=== PATIENT | female | born 1975 | race Caucasian/White ===

== ENCOUNTER → 2017-05-11 | Outpatient (CLI) | payer OTHER ==
--- NOTE | 2017-05-11 11:26 | XR ---
First digit right hand HISTORY: Trauma and pain 3 views of the first digit of the right hand Bone mineralization, joint spaces and alignment are maintained. No radiopaque foreign body evident. IMPRESSION: No fracture or dislocation evident. Follow-up as indicated.
== END | disposition home or self-care (01) ==
LOC: RADXRMAIN 10:55
PROVIDERS: ATTEND Emergency Medicine
DX: S60.111D Contusion of right thumb with damage to nail, subsequent encounter (principal)

== ENCOUNTER → 2017-06-09 | Outpatient (CLI) | payer OTHER ==
--- NOTE | 2017-06-09 14:32 | US ---
EXAMINATION TYPE: US thyroid st tissue head/neck DATE OF EXAM: 06/09/2017 COMPARISON: NONE CLINICAL HISTORY: E04.9 nontoxic goiter. Doctor felt thyroid was enlarged GLAND SIZE: Right Lobe: 4.9 x 1.2 x 1.6 cm Overall Parenchyma: homogenous Left Lobe: 4.6 x 0.7 x 1.5 cm Overall Parenchyma: homogeneous Isthmus Thickness: 0.3 cm NODULES RIGHT: # of nodules measured on right: 0 LEFT: # of nodules measured on left: 0 ISTHMUS: # of nodules measured in the isthmus: 0 Within the left neck, there is a oval hypoechoic area measuring 1.1 x 0.3 x 0.5 cm, probable nonenlar ged lymph node. IMPRESSION: Thyroid gland is upper limits of normal in size and homogeneous without focal nodularity.
== END | disposition home or self-care (01) ==
LOC: RADUSWWP 13:57
PROVIDERS: ATTEND Family Medicine
DX: E04.9 Nontoxic goiter, unspecified (principal)
CPT/HCPCS: 76536

== ENCOUNTER 2018-11-20 04:49 | Emergency (ER) | payer OTHER ==
[2018-11-20 04:53] VITALS: BP 117/79; PULSE 99; RESP 20; TEMP 97.9
--- NOTE | 2018-11-20 04:59 | ED ---
Skin/Abscess/FB HPI - General Chief complaint: Skin/Abscess/Foreign Body Stated complaint: Rash Time Seen by Provider: 11/20/18 04:56 Source: patient Mode of arrival: ambulatory Limitations: no limitations - History of Present Illness Initial comments: Jyoti is a pleasant 42-year-old female who presents to the emergency department today for evaluation of diffuse urticarial rash. Patient reports that a couple of nights ago she tried on her daughter's old prom dresses. Patient states that one of the dresses had been dry-cleaning others she doesn't believe had been. Patient states that after that she noted some hives on her abdomen. Patient reports that she took Benadryl and slept however yesterday she again noted hives on her abdomen. She states she took Benadryl prior to going to bed but woke during the night and had hives over her bilateral lower extremities as well. Patient states she's never had this before. She denies any exposure to new soaps, lotions, laundry detergent or any new foods or medications. Patient states she believes this is related to trying on the dresses. She denies any associated wheezing shortness breath tightness in her chest or throat. She does feel that her lower lip is somewhat swollen. His nebulizer of asthma ectopy or urticaria in the past. - Related Data Previous Rx's Medication Instructions Recorded clonazePAM [KlonoPIN] 0.25 mg PO PC-TID #30 tab 08/13/15 hydrOXYzine HCL [Atarax] 25 mg PO TID PRN #30 tab 11/20/18 predniSONE [Deltasone] 40 mg PO DAILY 5 Days #10 tablet 11/20/18 Allergies Allergy/AdvReac Type Severity Reaction Status Date / Time Penicillins Allergy Severe Anaphylaxis Verified 11/20/18 04:53 medical tape Allergy Rash/Hives Uncoded 11/20/18 04:53 Review of Systems ROS Statement: Those systems with pertinent positive or pertinent negative responses have been documented in the HPI. ROS Other: All systems not noted in ROS Statement are negative. Past Medical History Past Medical History: No Reported History Additional Past Medical History / Comment(s): SEE DR BARBOSA H&P History of Any Multi-Drug Resistant Organisms: None Reported Past Surgical History: Section, Hysterectomy, Tubal Ligation Additional Past Surgical History / Comment(s): laparotomy Past Anesthesia/Blood Transfusion Reactions: No Reported Reaction, Motion Sickness Past Psychological History: Anxiety Smoking Status: Never smoker Past Alcohol Use History: Rare Past Drug Use History: None Reported - Past Family History Mother Family Medical History: No Reported History Father Family Medical History: Myocardial Infarction ([place]) General Exam - General Exam Comments Initial Comments: Physical Exam GENERAL: Patient is well-developed and well-nourished. Patient is nontoxic and well- hydrated and is in no distress. HENT: Normocephalic, Atraumatic. No posterior oropharyngeal edema, normal uvula EYES: PERRL, EOMI PULMONARY: Unlabored respirations. No audible rales rhonchi or wheezing was noted. CARDIOVASCULAR: There is a regular rate and rhythm without any murmurs gallops or rubs. ABDOMEN: Soft and nontender with normal bowel sounds. SKIN: Hives on bilateral lower extremities, hives on the abdomen : Deferred NEUROLOGIC: Patient is alert and oriented x3. Moving all extremities spontaneously MUSCULOSKELETAL: Normal extremities with adequate strength and full range of motion. No lower extremity swelling or edema. No calf tenderness. PSYCHIATRIC: Normal psychiatric evaluation. Limitations: no limitations Course Vital Signs 11/20/18 04:49 Temperature 97.9 F Pulse Rate 99 Respiratory 20 Rate Blood Pressure 117/79 O2 Sat by Pulse 100 Oximetry Medical Decision Making - Medical Decision Making The patient was seen and evaluated, history is obtained from the patient History and physical exam are concerning for urticarial rash, this appears to be ALLERGIC in nature Patient was treated with Benadryl, Solu-Medrol and Pepcid, patient will be discharged home with prednisone and Atarax I advised the patient to keep a list of any possible exposures that could be worsening her symptoms, recommended avoiding heat, advised her not to scratch, supportive care was discussed return parameters discussed patient was discharged home in stable condition Disposition Clinical Impression: Urticaria Disposition: HOME SELF-CARE Condition: Stable Instructions (If sedation given, give patient instructions): Urticaria (ED) Prescriptions: hydrOXYzine HCL [Atarax] 25 mg PO TID PRN #30 tab PRN Reason: Itching predniSONE [Deltasone] 40 mg PO DAILY 5 Days #10 tablet Is patient prescribed a controlled substance at d/c from ED?: No Referrals: Jatin Parra DO [Primary Care Provider] - 1-2 days
[2018-11-20] MEDS ORDERED: methylPREDNISolone SOD SUCCI 125 MG/2 ML VIAL IV STA (05:17)
[2018-11-20] MEDS ORDERED: diphenhydrAMINE 50 MG/ML 1 ML VIAL IVP STA (05:17)
[2018-11-20] MEDS ORDERED: FAMOTIDINE 20 MG/2 ML VIAL IV STA (05:17)
== END 2018-11-20 05:50 | disposition home or self-care (01) ==
LOC: EC 04:49
DX: L50.9 Urticaria, unspecified (principal); Z88.0 Allergy status to penicillin; Z91.048 Other nonmedicinal substance allergy status
CPT/HCPCS: 99282; 96374; 96375 ×2; J1200; J2930

== ENCOUNTER 2018-12-09 08:25 | Emergency (ER) | payer OTHER ==
[2018-12-09 08:34] VITALS: TEMP 97.9
--- NOTE | 2018-12-09 08:56 | ED ---
Allergic Reaction HPI - General Chief complaint: Allergic Reaction Stated complaint: Allergic Reaction Time Seen by Provider: 12/09/18 08:38 Source: patient, RN notes reviewed Mode of arrival: ambulatory Limitations: no limitations - History of Present Illness Initial Comments: 42-year-old female presented for possible ALLERGIC reaction. Patient's been having recurrent reactions in which she is seen at hot room attendant next week. Patient states that she woke up today states she started getting ready to noticed that she started having facial swelling, felt itchy and tingly. Patient states that the symptoms have improved at this time no medications. She states this is similar to her prior reactions though her initial reaction she had diffuse urticaria. Patient denies any new soaps lotions detergents no new medications no known food ALLERGIES she does have reported sensitivity to penicillin and medical tape. Patient states that she's been keeping a diary of all all of her food intake and other products. Patient denies difficult swelling, to complete breathing - Related Data Previous Rx's Medication Instructions Recorded predniSONE 50 mg PO DAILY #5 tab 12/09/18 Allergies Allergy/AdvReac Type Severity Reaction Status Date / Time Penicillins Allergy Severe Anaphylaxis Verified 12/09/18 08:34 medical tape Allergy Rash/Hives Uncoded 12/09/18 08:34 Review of Systems ROS Statement: Those systems with pertinent positive or pertinent negative responses have been documented in the HPI. ROS Other: All systems not noted in ROS Statement are negative. Past Medical History Past Medical History: No Reported History Additional Past Medical History / Comment(s): SEE DR BARBOSA H&P History of Any Multi-Drug Resistant Organisms: None Reported Past Surgical History: Section, Hysterectomy, Tubal Ligation Additional Past Surgical History / Comment(s): laparotomy Past Anesthesia/Blood Transfusion Reactions: No Reported Reaction, Motion Sickness Past Psychological History: Anxiety Smoking Status: Never smoker Past Alcohol Use History: Rare Past Drug Use History: None Reported - Past Family History Mother Family Medical History: No Reported History Father Family Medical History: Myocardial Infarction ([place]) General Exam Limitations: no limitations General appearance: alert, in no apparent distress Head exam: Present: atraumatic, normocephalic, normal inspection Eye exam: Present: normal appearance, PERRL, EOMI. Absent: scleral icterus, conjunctival injection, periorbital swelling ENT exam: Present: normal exam, normal oropharynx, mucous membranes moist, TM's normal bilaterally Neck exam: Present: normal inspection, full ROM. Absent: tenderness, meningis mus, lymphadenopathy Respiratory exam: Present: normal lung sounds bilaterally. Absent: respiratory distress, wheezes, rales, rhonchi, stridor Cardiovascular Exam: Present: regular rate, normal rhythm, normal heart sounds. Absent: systolic murmur, diastolic murmur, rubs, gallop, clicks GI/Abdominal exam: Present: soft, normal bowel sounds. Absent: distended, tenderness, guarding, rebound, rigid Neurological exam: Present: alert, oriented X3, CN II-XII intact Skin exam: Present: warm, dry, intact, normal color. Absent: rash Course Vital Signs 12/09/18 08:32 Temperature 97.9 F Pulse Rate 89 Respiratory 18 Rate Blood Pressure 128/85 O2 Sat by Pulse 99 Oximetry Medical Decision Making - Medical Decision Making 42-year-old female presented for possible ALLERGIC reaction symptoms have resolved prior to arrival. Symptoms are consistent with reaction which patient is concerned about. She is scheduled to see an hot room attendant. Patient will be provided prednisone if symptoms return she will take Benadryl in addition. Return parameters were discussed. Disposition Clinical Impression: Allergic reaction Disposition: HOME SELF-CARE Condition: Stable Instructions (If sedation given, give patient instructions): General Allergic Reaction (ED) Additional Instructions: Follow-up with your hot room attendant appointment. Please return to the Emergency Department if symptoms worsen or any other concerns. Prescriptions: predniSONE 50 mg PO DAILY #5 tab Is patient prescribed a controlled substance at d/c from ED?: No Referrals: Jatin Parra DO [Primary Care Provider] - 1-2 days Jayda Omer MD [STAFF PHYSICIAN] - 1-2 days Time of Disposition: 08:56
[2018-12-09 09:24] VITALS: BP 128/89; PULSE 79; RESP 18
== END 2018-12-09 09:19 | disposition home or self-care (01) ==
LOC: EC 08:25
DX: T78.40XA Allergy, unspecified, initial encounter (principal); L50.0 Allergic urticaria; Z88.0 Allergy status to penicillin; Z91.048 Other nonmedicinal substance allergy status
CPT/HCPCS: 99283

== ENCOUNTER → 2018-12-13 | Outpatient (CLI) | payer OTHER ==
--- NOTE | 2018-12-13 19:34 | US ---
EXAMINATION TYPE: US thyroid st tissue head/neck DATE OF EXAM: 12/13/2018 COMPARISON: NONE CLINICAL HISTORY: E04.9 Thyroid Nodule. Thyroid nodule GLAND SIZE: Right Lobe: 5.3 x 1.4 x 1.5 cm Overall Parenchyma: homogenous Left Lobe: 4.9 x 1.4 x 1.8 cm Overall Parenchyma: homogeneous Isthmus Thickness: .3 cm NODULES RIGHT: # of nodules measured on right: 0 LEFT: # of nodules measured on left: 0 ISTHMUS: # of nodules measured in the isthmus: 0 Bilateral neck scanned, no evidence of lymphadenopathy. IMPRESSION: Stable unremarkable tyroid ultrasound
== END | disposition home or self-care (01) ==
LOC: RADUSMAIN 17:43
PROVIDERS: ATTEND Allergy & Immunology
DX: E04.9 Nontoxic goiter, unspecified (principal)
CPT/HCPCS: 76536

== ENCOUNTER → 2021-01-28 | Outpatient (CLI) | payer OTHER ==
--- NOTE | 2021-01-29 14:14 | MM ---
Reason for exam: screening (asymptomatic). Last mammogram was performed 1 year and 6 months ago. History: Patient is postmenopausal. Family history of breast cancer in maternal grandmother and breast cancer in maternal aunt. Took hormonal contraceptives for 3 years. Physical Findings: A clinical breast exam by your physician is recommended on an annual basis and results should be correlated with mammographic findings. MG Screening Mammo w CAD Bilateral CC and MLO view(s) were taken. Prior study comparison: August 03, 2019, mammogram, performed at [facility]. The breast tissue is heterogeneously dense. This may lower the sensitivity of mammography. There is no discrete abnormality. ASSESSMENT: Negative, BI-RAD 1 RECOMMENDATION: Routine screening mammogram of both breasts in 1 year.
== END | disposition home or self-care (01) ==
LOC: RADMAMWWP 07:45
PROVIDERS: ATTEND Family Medicine
DX: Z12.31 Encounter for screening mammogram for malignant neoplasm of breast (principal); Z80.3 Family history of malignant neoplasm of breast
CPT/HCPCS: 77067

== ENCOUNTER → 2021-01-29 | Outpatient (CLI) | payer OTHER ==
--- NOTE | 2021-01-29 13:42 | P.STRESS ---
- Stress Test Note Stress Test Results/Findings: Exam Performed: stress test Exam Date: 01/29/21 Reason for Exam: CHEST PAIN, FAMILY HX Height: 5 ft 1 in Weight: 60.9 kg Protocol: SHAYLA Stage: 4 Duration of Exercise: 10:16 Resting Heart Rate: 70 Resting Blood Pressure: 115/90 Maximum Achieved Heart Rate: 170 Maximum Achieved Blood Pressure: 187/76 85% PMHR: 150 100% PMHR: 176 METS: 12.1 Technologist Comment: Stress Test Results/Findings: Patient underwent exercise stress EKG with a Shayla protocol treadmill stress test. Patient exercised into Stage 4 for a total of 10 minutes and 16 seconds reaching a total of 12.1 METS. Patient's maximum heart rate was 170 which represented 97% age-predicted maximum heart rate. Stress EKG findings: At baseline patient's EKG showed normal sinus rhythm, normal axis, no significant ST or T wave abnormalities, T-wave inversion in lead 3. At peak exercise, EKG showed nonspecific and nondiagnostic 0.[address] depressions in the inferior and lateral leads. Conclusions: 1. Nonspecific EKG response to exercise without evidence of inducible ischemia. 2. Good exercise capacity.
== END | disposition home or self-care (01) ==
LOC: RADNMMAIN 08:24
PROVIDERS: ATTEND Family Medicine
DX: R07.9 Chest pain, unspecified (principal)
CPT/HCPCS: 93017

== ENCOUNTER 2022-01-22 08:44 | Day surgery (SDC) | payer OTHER ==
[2022-01-22 09:08] VITALS: TEMP 97.7
[2022-01-22] MEDS ORDERED: LACTATED RINGERS 1,000 ML IV ONE (09:23)
[2022-01-22] MEDS ORDERED: LIDOCAINE 1% (10MG/ML) FOR IV START INTRADERMA ONE (09:24)
[2022-01-22] MEDS ORDERED: PROPOFOL 10 MG/ML 20 ML VIAL IV ONE (10:00)
--- NOTE | 2022-01-22 10:15 | P.PCN ---
Date of Procedure: 01/22/22 Procedure(s) Performed: BRIEF HISTORY: Patient is a 46-year-old pleasant 8 female scheduled for an elective colonoscopy as a part of screening for colorectal neoplasia. She does have strong family history of colon cancer diagnosed in her paternal uncles at age 59 and 65 respectively. PROCEDURE PERFORMED: Colonoscopy. PREOPERATIVE DIAGNOSIS: Screening for colon cancer and family history of colon cancer. IV sedation per Anesthesia. PROCEDURE: After informed consent was obtained, the patient, was brought into the endoscopy unit. IV sedation was administered by Anesthesia under continuous monitoring. Digital rectal examination was normal. Initially the Olympus CF-160 flexible video colonoscope was then inserted in the rectum, gradually advanced into the cecum without any difficulty. Careful examination was performed as the scope was gradually being withdrawn. Ileocecal valve and the appendiceal orifice were visualized and appeared normal. Prep was excellent. Mucosa of the cecum, ascending colon, transverse colon, descending colon, sigmoid colon, and rectum appeared normal. At her sigmoid diverticulosis. Retroflexion was performed in the rectum and no lesions were seen. The patient tolerated the procedure well. IMPRESSION: Normal-appearing colon from rectum to cecum with no evidence of colorectal neoplasia. Scattered sigmoid diverticulosis. RECOMMENDATIONS: Findings of this examination were discussed with the patient as well as a family. She was advised to have a repeat screening colonoscopy every 5 years because of family history of colon cancer.
[2022-01-22 10:37] VITALS: BP 105/58; PULSE 94; RESP 16
== END 2022-01-22 11:11 | disposition home or self-care (01) ==
LOC: ORWHC2ENDO 08:44
PROVIDERS: ATTEND Internal Medicine Gastroenterology
DX: Z12.11 Encounter for screening for malignant neoplasm of colon (principal); K57.30 Diverticulosis of large intestine without perforation or abscess without bleeding; Z80.0 Family history of malignant neoplasm of digestive organs; R19.5 Other fecal abnormalities
CPT/HCPCS: 45378; J2704

== ENCOUNTER → 2022-01-29 | Outpatient (CLI) | payer OTHER ==
--- NOTE | 2022-01-29 16:13 | MM ---
Reason for Exam: Screening (asymptomatic). Last screening mammogram was performed 12 month(s) ago. Patient History: Menarche at age 13. First Full-Term at age 21. Hysterectomy at age 36. Postmenopausal. Patient used Hormonal Contraceptives for 3 years. Maternal grandmother had breast cancer. Maternal aunt had breast cancer. Risk Values: Jayda 5 year model risk: 0.7%. NCI Lifetime model risk: 8.6%. Prior Study Comparison: 08/03/2019 Screening Mammogram, [facility]. 01/28/2021 Bilateral Screening Mammogram, [facility]. Tissue Density: The breast tissue is heterogeneously dense. This may lower the sensitivity of mammography. Findings: Analyzed By CAD. There is no suspicious group of microcalcifications or new suspicious mass in either breast. Overall Assessment: Negative, BI-RAD 1 Management: Screening Mammogram of both breasts in 1 year. A clinical breast exam by your physician is recommended on an annual basis and results should be correlated with mammographic findings. [facility] will attempt to contact patient to return for supplemental views and ultrasound if indicated. Electronically signed and approved by: Dimitri Huynh DO
== END | disposition home or self-care (01) ==
LOC: RADMAMWWP 10:46
PROVIDERS: ATTEND Family Medicine
DX: Z12.31 Encounter for screening mammogram for malignant neoplasm of breast (principal); Z78.0 Asymptomatic menopausal state; Z80.3 Family history of malignant neoplasm of breast
CPT/HCPCS: 77067

== ENCOUNTER 2022-02-13 07:32 | Emergency (ER) | payer OTHER ==
[2022-02-13 07:39] VITALS: RESP 18
[2022-02-13] MEDS ORDERED: methylPREDNISolone SOD SUCCI 125 MG/2 ML VIAL IM ONE (07:46)
[2022-02-13] MEDS ORDERED: diphenhydrAMINE 50 MG/ML 1 ML VIAL IM STA (07:46)
--- NOTE | 2022-02-13 07:56 | ED ---
Allergic Reaction HPI - General Chief complaint: Allergic Reaction Stated complaint: tingling facial area Time Seen by Provider: 02/13/22 07:46 Source: patient, RN notes reviewed, old records reviewed Mode of arrival: ambulatory Limitations: no limitations - History of Present Illness Initial Comments: This is an anxious 46-year-old female presents to the emergency room with complaints of facial tingling and sore throat after being exposed to a child was eating peanut butter on the bus this morning. Patient states that she has an ALLERGY to peanuts does take a daily antihistamine. Does have an EpiPen but did not use it today. She denies any nausea vomiting diarrhea. No difficulty in breathing. Denies difficulty in swallowing or rashes. Patient is anxious but states she has been dealing with exposures at work for a long time and is frustrated. MD Complaint: other (Sore throat and facial tingling) -: hour(s) (2) Exposure: food (Peanuts) Severity: mild Treatment Prior to Arrival: none Previous Allergy History: prior ED visit(s) - Related Data Home Medications Medication Instructions Recorded Confirmed Loratadine [Claritin] 10 mg PO DAILY 01/21/22 01/22/22 Allergies Allergy/AdvReac Type Severity Reaction Status Date / Time Penicillins Allergy Severe Anaphylaxis Verified 01/22/22 09:08 tree nut [Nut] Allergy Anaphylaxis Verified 02/13/22 07:39 medical tape Allergy Rash/Hives Uncoded 01/22/22 09:08 Review of Systems ROS Statement: Those systems with pertinent positive or pertinent negative responses have been documented in the HPI. ROS Other: All systems not noted in ROS Statement are negative. Past Medical History Past Medical History: No Reported History Additional Past Medical History / Comment(s): SEE DR BARBOSA H&P History of Any Multi-Drug Resistant Organisms: None Reported Past Surgical History: Section, Hysterectomy, Tubal Ligation Additional Past Surgical History / Comment(s): laparotomy, bunion surg scot feet Past Anesthesia/Blood Transfusion Reactions: No Reported Reaction, Motion Sickness Past Psychological History: Anxiety Smoking Status: Never smoker Past Alcohol Use History: Occasional Past Drug Use History: None Reported - Past Family History Mother Family Medical History: No Reported History Father Family Medical History: Myocardial Infarction ([place]) General Exam Limitations: no limitations General appearance: alert, in no apparent distress Head exam: Present: atraumatic Eye exam: Present: normal appearance. Absent: scleral icterus, conjunctival injection, periorbital swelling ENT exam: Present: normal oropharynx, mucous membranes moist Expanded Mouth exam: Present: tongue normal, tongue elevation. Absent: drooling, trismus, muffled voice Throat exam: normal inspection. negative: tonsillar erythema, tonsillomegaly, tonsillar exudate, R peritonsillar mass, L peritonsillar mass Neck exam: Absent: meningismus Respiratory exam: Present: normal lung sounds bilaterally. Absent: respiratory distress, wheezes, rales, rhonchi, stridor, chest wall tenderness, accessory muscle use, decreased breath sounds Cardiovascular Exam: Present: regular rate GI/Abdominal exam: Present: soft Neurological exam: Present: alert, oriented X3 Psychiatric exam: Present: anxious Skin exam: Present: warm, dry, normal color. Absent: cyanosis, diaphoretic, pallor Course Vital Signs 02/13/22 07:36 Temperature 98 F Pulse Rate 98 Respiratory 18 Rate Blood Pressure 145/78 O2 Sat by Pulse 100 Oximetry Medical Decision Making - Medical Decision Making Patient was given Solu-Medrol and Benadryl in the emergency room. She was also given Pepcid. Lungs sounds are clear no respiratory distress. No nausea vomiting. No rashes. She is feeling better. Discussed with Dr. Nguyen she'll be discharged home. She does have an EpiPen. Directed to follow-up with her ALLERGY asthma doctor as needed. She is agreeable to this plan and care. Disposition Clinical Impression: Allergic reaction Disposition: HOME SELF-CARE Condition: Good Instructions (If sedation given, give patient instructions): Peanut Allergy (ED) Additional Instructions: Take Benadryl as needed. Continue daily ALLERGY medication. Use your epinephrine pen with any shortness of breath or difficulty swallowing. Go to an emergency room after using an EpiPen for evaluation. Is patient prescribed a controlled substance at d/c from ED?: No Referrals: Amari Edge MD [Primary Care Provider] - 1-2 days Time of Disposition: 08:23
[2022-02-13] MEDS ORDERED: FAMOTIDINE 20 MG TAB PO STA (08:21)
[2022-02-13 08:45] VITALS: BP 137/84; PULSE 89; TEMP 98.2
== END 2022-02-13 08:44 | disposition home or self-care (01) ==
LOC: EC 07:32
DX: T78.40XA Allergy, unspecified, initial encounter (principal); F41.9 Anxiety disorder, unspecified; Z88.0 Allergy status to penicillin; Z91.018 Allergy to other foods; Z91.09 Other allergy status, other than to drugs and biological substances
CPT/HCPCS: 99283; 96372 ×2; J1200; J2930

== ENCOUNTER → 2022-07-21 | Outpatient (CLI) | payer OTHER ==
--- NOTE | 2022-07-21 11:33 | XR ---
EXAMINATION TYPE: XR shoulder complete RT DATE OF EXAM: 07/21/2022 COMPARISON: NONE HISTORY: Pain TECHNIQUE: Three views are submitted. FINDINGS: The osseous structures are intact. There is no acute fracture or dislocation. The AC joint is maint ained. IMPRESSION: 1. No acute process.
== END | disposition home or self-care (01) ==
LOC: RADXRMAIN 11:05
PROVIDERS: ATTEND Emergency Medicine
DX: S46.011A Strain of muscle(s) and tendon(s) of the rotator cuff of right shoulder, initial encounter (principal); X58.XXXA Exposure to other specified factors, initial encounter

== ENCOUNTER → 2023-01-23 | Outpatient (CLI) | payer OTHER ==
--- NOTE | 2023-01-23 10:58 | FL ---
EXAMINATION TYPE: FL UGI air wo esophagus wo KUB DATE OF EXAM: 01/23/2023 10:48 AM CLINICAL INDICATION:Female, 47 years old with history of R10.2 L LOW QUAD PAIN R10.13 EPIGASTRIC PAIN K62.5; COMPARISON: 09/06/2013 CT TECHNIQUE: The procedure was explained and patient history elicited. All patient questions were ans wered prior to start of procedure. A color strainer radiograph of the abdomen was also reviewed. Multiple flu oroscopic spot images of the esophagus, stomach and duodenum were obtained following ingestion of liq uid barium and EZ-gas crystals. Fluoroscopic time: 2 min Fluoroscopic images: 0 Radiographs taken: 64 DAP: [id number] [id number] FINDINGS: Upper GI examination: The color strainer abdominal radiograph demonstrates a normal bowel gas pattern without dilated loops of small or large bowel. There is no evidence for organomegaly or pneumoperitoneum. No abnormal calcificat ions. The visualized osseous structures are intact. The esophagus appears unremarkable without evidence of focal stricture, ulceration or abnormal outpou nahun. No hiatal hernia was visualized. No evidence of gastroesophageal reflux was seen when the p atient was instructed to bear down. The stomach and duodenum demonstrate a normal course and contour. There is no evidence of focal gastric or duodenal ulceration, stricture, or abnormal outpouching. IMPRESSION: Normal upper gastrointestinal examination.
--- NOTE | 2023-01-23 11:06 | US ---
EXAMINATION TYPE: US abdomen complete DATE OF EXAM: 01/23/2023 COMPARISON: NONE CLINICAL INDICATION: Female, 47 years old with history of R10.2 L LOW QUAD PAIN R10.13 EPIGASTRIC ROBERT N K62.5; epigastric pain x a few months, getting worse TECHNIQUE: Multiple sonographic images of the abdomen are obtained. FINDINGS: EXAM MEASUREMENTS: Liver Length: 15.2 cm Gallbladder Wall: 0.2 cm CBD: 0.2 cm Spleen: 9.6 cm Right Kidney: 10.9x3.2x4.0 cm Left Kidney: 10.6x4.1x4.6 cm RADIO BROADCASTER NOTES: Pancreas: Tail obscured by overlying bowel gas Liver: Within normal limits. Gallbladder: tiny <3mm echogenic foci noted on anterior and posterior wall, do not appear to be free ly mobile Evidence for sonographic Boyce's sign: No CBD: wnl Spleen: wnl Right Kidney: wnl Left Kidney: wnl Upper IVC: wnl Abd Aorta: wnl The liver is homogenous. The intrahepatic portion of the IVC and proximal abdominal aorta are within normal limits. Common bile duct is unremarkable. The visualized portions of the pancreas are homog enous. The spleen is unremarkable. Kidneys are symmetric and free of hydronephrosis. No renal lesi ons are seen. IMPRESSION: 1. No evidence for acute process. 2. Possible gallbladder polyp versus adherent gallstone.
== END | disposition home or self-care (01) ==
LOC: RADUSWWP 08:50
PROVIDERS: ATTEND Family Medicine
DX: K62.5 Hemorrhage of anus and rectum (principal)
CPT/HCPCS: 74246; 76700

== ENCOUNTER → 2023-02-23 | Outpatient (CLI) | payer OTHER ==
--- NOTE | 2023-02-25 07:44 | MM ---
Reason for Exam: Screening (asymptomatic). Last mammogram was performed 1 year(s) and 1 month(s) ago. Patient History: Menarche at age 13. First Full-Term at age 21. Hysterectomy at age 36. Postmenopausal. Patient used Hormonal Contraceptives for 3 years. Maternal grandmother had breast cancer. Maternal aunt had breast cancer. Risk Values: Jayda 5 year model risk: 0.8%. NCI Lifetime model risk: 8.5%. Prior Study Comparison: 08/03/2019 Screening Mammogram, [facility]. 01/28/2021 Bilateral Screening Mammogram, [facility]. 01/29/2022 Bilateral MG screening mammo w CAD, [facility]. Tissue Density: The breast tissue is heterogeneously dense. This may lower the sensitivity of mammography. Findings: Analyzed By CAD. Asymmetric density inner upper left breast approximately 5 cm from the nipple. Additional views are recommended. No suspicious calcifications within either breast. Overall Assessment: Incomplete: need additional imaging evaluation, BI-RAD 0 Management: Diagnostic Mammogram of the left breast. . Patient should continue monthly self-breast exams. A clinical breast exam by your physician is recommended on an annual basis. This exam should not preclude additional follow-up of suspicious palpable abnormalities. Note on Jayda scores and lifetime risk: 1. A Jayda score greater than 3% is considered moderate risk. If this is the case, consider specialist referral to assess eligibility for a risk reducing agent. 2. If overall lifetime risk for the development of breast cancer is 20% or higher, the patient may qualify for future screening with alternating mammogram and breast MRI. Electronically signed and approved by: Alfred Gant M.D. Radiologis
== END | disposition home or self-care (01) ==
LOC: RADMAMWWP 09:42
PROVIDERS: ATTEND Family Medicine
DX: Z12.31 Encounter for screening mammogram for malignant neoplasm of breast (principal); Z78.0 Asymptomatic menopausal state; Z80.3 Family history of malignant neoplasm of breast
CPT/HCPCS: 77067

== ENCOUNTER → 2023-03-06 | Outpatient (CLI) | payer OTHER ==
--- NOTE | 2023-03-06 10:53 | MM ---
Reason for Exam: Additional evaluation requested from abnormal screening. Last screening mammogram was performed less than 1 month ago. Patient History: Menarche at age 13. First Full-Term at age 21. Hysterectomy at age 36. Postmenopausal. Patient used Hormonal Contraceptives for 3 years. Maternal grandmother had breast cancer. Maternal aunt had breast cancer. Risk Values: Jayda 5 year model risk: 0.8%. NCI Lifetime model risk: 8.5%. Prior Study Comparison: 01/28/2021 Bilateral Screening Mammogram, [facility]. 01/29/2022 Bilateral MG screening mammo w CAD, [facility]. 02/23/2023 Bilateral MG screening mammo w CAD, [facility]. Tissue Density: Left: The breast tissue is heterogeneously dense. This may lower the sensitivity of mammography. Findings: Analyzed By CAD. The questioned area of medial focal asymmetry does not persist on additional spot 3-D images or 3-D lateral view. Findings compatible with superimposition shadow. Overall Assessment: Benign, BI-RAD 2 Management: Screening Mammogram of both breasts in 1 year. Results were given to the patient verbally at the time of exam. Patient should continue monthly self-breast exams. A clinical breast exam by your physician is recommended on an annual basis. This exam should not preclude additional follow-up of suspicious palpable abnormalities. Note on Jayda scores and lifetime risk: 1. A Jayda score greater than 3% is considered moderate risk. If this is the case, consider specialist referral to assess eligibility for a risk reducing agent. 2. If overall lifetime risk for the development of breast cancer is 20% or higher, the patient may qualify for future screening with alternating mammogram and breast MRI. Electronically signed and approved by: Idania Bush M.D. Radiologist
== END | disposition home or self-care (01) ==
LOC: RADMAMWWP 10:12
PROVIDERS: ATTEND Family Medicine
DX: R92.332 Mammographic heterogeneous density, left breast (principal); Z78.0 Asymptomatic menopausal state; Z80.3 Family history of malignant neoplasm of breast
CPT/HCPCS: 77061; 77065

== ENCOUNTER 2024-07-22 09:53 | Emergency (ER) | payer OTHER ==
--- NOTE | 2024-07-22 10:40 | ED ---
General Adult HPI - General Chief complaint: Allergic Reaction Stated complaint: facial swelling Time Seen by Provider: 07/22/24 10:12 Source: patient, RN notes reviewed Mode of arrival: ambulatory Limitations: no limitations - History of Present Illness Initial comments: 48-year-old female presents to the emergency department for evaluation of potential allergic reaction. Patient states that she has noticed facial swelling that started this morning. She denies any known new exposures. She does report a history of allergic reactions. She did not use her EpiPen. Patient reports feeling slightly lightheaded and more short of breath. She denies any known fever, chills. Denies any new exposures. - Related Data Home Medications Medication Instructions Recorded Confirmed Loratadine [Claritin] 10 mg PO DAILY 01/21/22 01/22/22 Previous Rx's Medication Instructions Recorded predniSONE 50 mg PO DAILY #5 tab 07/22/24 Allergies Allergy/AdvReac Type Severity Reaction Status Date / Time Penicillins Allergy Severe Anaphylaxis Verified 07/22/24 10:03 tree nut [Nut] Allergy Anaphylaxis Verified 07/22/24 10:03 medical tape Allergy Rash/Hives Uncoded 07/22/24 10:03 Review of Systems ROS Statement: Those systems with pertinent positive or pertinent negative responses have been documented in the HPI. ROS Other: All systems not noted in ROS Statement are negative. Past Medical History Past Medical History: No Reported History Additional Past Medical History / Comment(s): SEE DR BARBOSA H&P History of Any Multi-Drug Resistant Organisms: None Reported Past Surgical History: Section, Hysterectomy, Tubal Ligation Additional Past Surgical History / Comment(s): laparotomy, bunion surg scot feet Past Anesthesia/Blood Transfusion Reactions: No Reported Reaction, Motion Sickness Past Psychological History: Anxiety Smoking Status: Never smoker Past Alcohol Use History: Occasional Past Drug Use History: None Reported - Past Family History Mother Family Medical History: No Reported History Father Family Medical History: Myocardial Infarction ([place]) General Exam Limitations: no limitations General appearance: alert, in no apparent distress Head exam: Present: atraumatic, normocephalic, normal inspection Eye exam: Present: normal appearance, PERRL, EOMI. Absent: scleral icterus, conjunctival injection, periorbital swelling ENT exam: Present: mucous membranes moist, other (Mild edema to the upper lip, no swelling to the tongue or uvula) Neck exam: Present: normal inspection. Absent: tenderness, meningismus, lymphadenopathy Respiratory exam: Present: normal lung sounds bilaterally. Absent: respiratory distress, wheezes, rales, rhonchi, stridor Cardiovascular Exam: Present: regular rate, normal rhythm, normal heart sounds. Absent: systolic murmur, diastolic murmur, rubs, gallop, clicks Extremities exam: Present: normal inspection, full ROM, normal capillary refill. Absent: tenderness, pedal edema, joint swelling, calf tenderness Back exam: Present: normal inspection Neurological exam: Present: alert, oriented X3 Psychiatric exam: Present: normal affect, normal mood Skin exam: Present: warm, dry, intact, normal color. Absent: rash Course Vital Signs 07/22/24 07/22/24 10:00 12:26 Temperature 98.5 F 98.4 F Pulse Rate 74 70 Respiratory 17 16 Rate Blood Pressure 127/80 125/82 O2 Sat by Pulse 98 98 Oximetry Medical Decision Making - Medical Decision Making Was pt. sent in by a medical professional or institution (, PA, SERVICE OPERATOR, urgent care, hospital, or fdc...) When possible be specific @ -[No] Did you speak to anyone other than the patient for history (EMS, parent, family, police, friend...)? What history was obtained from this source @ -[No] Did you review nursing and triage notes (agree or disagree)? Why? @ -[I reviewed and agree with nursing and triage notes] Were old charts reviewed (outside hosp., previous admission, EMS record, old EKG, old radiological studies, urgent care reports/EKG's, fdc records)? Report findings @ -[No old charts were reviewed] Differential Diagnosis (chest pain, altered mental status, abdominal pain women, abdominal pain men, vaginal bleeding, weakness, fever, dyspnea, syncope, headache, dizziness, GI bleed, back pain, seizure, CVA, palpatations, mental health, musculoskeletal)? @ -Differential Dyspnea: Coronary syndrome, arrhythmia, tamponade, asthma, COPD, pulmonary embolism, pneumonia, pneumothorax, pulmonary effusion, anaphylaxis, diabetic ketoacidosis, flailed chest, pulmonary contusion, diaphragmatic rupture, anemia, neuromuscular, this is not meant to be an all-inclusive list. EKG interpreted by me (3pts min.). @ -EKG@1048 reveals sinus rhythm rate 67, GA 110, QRS 77, QTQTc [id number] X-rays interpreted by me (1pt min.). @ -Chest x-ray reveals no acute process CT interpreted by me (1pt min.). @ -[None done] U/S interpreted by me (1pt. min.). @ -[None done] What testing was considered but not performed or refused? (CT, X-rays, U/S, labs)? Why? @ -[None] What meds were considered but not given or refused? Why? @ -[None] Did you discuss the management of the patient with other professionals (professionals i.e. DrDerek, PA, SERVICE OPERATOR, lab, RT, psych nurse, neonatal social worker, moisture machine tender, teacher, chief media officer, senior case manager)? Give summary @ -[No] Was smoking cessation discussed for >3mins.? @ -[No] Was critical care preformed (if so, how long)? @ -[No] Were there social determinants of health that impacted care today? How? (Homelessness, low income, unemployed, alcoholism, drug addiction, transportation, low edu. Level, literacy, decrease access to med. care, custodial, rehab)? @ -[No] Was there de-escalation of care discussed even if they declined (Discuss DNR or withdrawal of care, Hospice)? DNR status @ -[No] What co-morbidities impacted this encounter? (DM, HTN, Smoking, COPD, CAD, Cancer, CVA, ARF, Chemo, Hep., AIDS, mental health diagnosis, sleep apnea, morbid obesity)? @ -[None] Was patient admitted / discharged? Hospital course, mention meds given and route, prescriptions, significant lab abnormalities, going to OR and other pertinent info. @ -Discharge. Patient presented emergency department for potential allergic reaction. She was administered an allergy cocktail in the emergency department. She does report improvement in her symptoms. Laboratory studies were obtained revealing no significant leukocytosis, hemoglobin stable; CMP is nonactionable. Chest x-ray reveals no acute process. Patient is in no acute distress. Vital signs are stable. Patient will be discharged home. She is understanding agreeable with plan. Patient stable at time of discharge. Case discussed with Dr. Gordon. Undiagnosed new problem with uncertain prognosis? @ -[No] Drug Therapy requiring intensive monitoring for toxicity (Heparin, Nitro, Insulin, Cardizem)? @ -[No] Were any procedures done? @ -[No] Diagnosis/symptom? @ -Allergic reaction Acute, or Chronic, or Acute on Chronic? @ -Acute Uncomplicated (without systemic symptoms) or Complicated (systemic symptoms)? @ -Uncomplicated Side effects of treatment? @ -[No] Exacerbation, Progression, or Severe Exacerbation? @ -[No] Poses a threat to life or bodily function? How? (Chest pain, [place], [place], pneumonia, PE, COPD, DKA, ARF, appy, cholecystitis, CVA, Diverticulitis, Homicidal, Suicidal, threat to staff... and all critical care pts) @ -[No] - Lab Data Result diagrams: 07/22/24 10:48 07/22/24 10:48 Lab Results 07/22/24 07/22/24 07/22/24 Range/Units 10:48 10:48 10:48 WBC 9.42 (4.50-10.00) 10*3/uL RBC 4.46 (4.10-5.20) 10*6/uL Hgb 14.0 (12.0-15.0) g/dL Hct 40.7 (37.2-46.3) % MCV 91.3 (80.0-97.0) fL MCH 31.4 (27.0-32.0) pg MCHC 34.4 (32.0-37.0) g/dL Plt Count 340 (140-440) 10*3/uL MPV 9.6 (9.5-12.2) fL Immature Gran % (Auto) 0.8 % Neutrophils % 44.0 % Lymphocytes % 45.8 % Monocytes % 6.8 % Eosinophils % 2.1 % Basophils % 0.5 % Immature Gran # 0.08 H (0.00-0.04) 10*3/uL Neutrophils # 4.14 (1.80-7.70) 10*3/uL Lymphocytes # 4.31 (0.90-5.00) 10*3/uL Monocytes # 0.64 (0.20-1.00) 10*3/uL Eosinophils # 0.20 (0.04-0.35) 10*3/uL Basophils # 0.05 (0.00-0.10) 10*3/uL PT 10.2 (10.0-12.5) sec INR 0.9 (<1.2) APTT 23.5 (22.0-30.0) sec Sodium 142 (137-145) mmol/L Potassium 3.5 (3.5-5.1) mmol/L Chloride 105 (98-107) mmol/L Carbon Dioxide 25 (22-30) mmol/L Anion Gap 12 mmol/L BUN 14 (7-17) mg/dL Creatinine 0.73 (0.52-1.04) mg/dL Est GFR (CKD-EPI)AfAm >90 (>60 ml/min/1.73 sqM) Est GFR (CKD-EPI)NonAf >90 (>60 ml/min/1.73 sqM) Glucose 84 (74-99) mg/dL Calcium 9.3 (8.4-10.2) mg/dL Total Bilirubin 0.3 (0.2-1.3) mg/dL AST 20 (14-36) U/L ALT 21 (4-34) U/L Alkaline Phosphatase 51 (38-126) U/L Troponin I (0.000-0.034) ng/mL Total Protein 7.1 (6.3-8.2) g/dL Albumin 4.3 (3.5-5.0) g/dL 07/22/24 Range/Units 10:48 WBC (4.50-10.00) 10*3/uL RBC (4.10-5.20) 10*6/uL Hgb (12.0-15.0) g/dL Hct (37.2-46.3) % MCV (80.0-97.0) fL MCH (27.0-32.0) pg MCHC (32.0-37.0) g/dL Plt Count (140-440) 10*3/uL MPV (9.5-12.2) fL Immature Gran % (Auto) % Neutrophils % % Lymphocytes % % Monocytes % % Eosinophils % % Basophils % % Immature Gran # (0.00-0.04) 10*3/uL Neutrophils # (1.80-7.70) 10*3/uL Lymphocytes # (0.90-5.00) 10*3/uL Monocytes # (0.20-1.00) 10*3/uL Eosinophils # (0.04-0.35) 10*3/uL Basophils # (0.00-0.10) 10*3/uL PT (10.0-12.5) sec INR (<1.2) APTT (22.0-30.0) sec Sodium (137-145) mmol/L Potassium (3.5-5.1) mmol/L Chloride (98-107) mmol/L Carbon Dioxide (22-30) mmol/L Anion Gap mmol/L BUN (7-17) mg/dL Creatinine (0.52-1.04) mg/dL Est GFR (CKD-EPI)AfAm (>60 ml/min/1.73 sqM) Est GFR (CKD-EPI)NonAf (>60 ml/min/1.73 sqM) Glucose (74-99) mg/dL Calcium (8.4-10.2) mg/dL Total Bilirubin (0.2-1.3) mg/dL AST (14-36) U/L ALT (4-34) U/L Alkaline Phosphatase (38-126) U/L Troponin I <0.012 (0.000-0.034) ng/mL Total Protein (6.3-8.2) g/dL Albumin (3.5-5.0) g/dL Disposition Clinical Impression: Allergic reaction Disposition: HOME SELF-CARE Condition: Stable Instructions (If sedation given, give patient instructions): General Allergic Reaction (ED) Additional Instructions: Please follow-up with your doctor. Return to the emergency department for new or worsening symptoms. Prescriptions: predniSONE 50 mg PO DAILY #5 tab Is patient prescribed a controlled substance at d/c from ED?: No Referrals: Amari Edge MD [Primary Care Provider] - 1-2 days
[2024-07-22] MEDS: methylPREDNISolone SOD SUCCI 125 MG/2 ML VIAL IV STA (10:52)
[2024-07-22] MEDS: FAMOTIDINE 20 MG/2 ML VIAL IV STA (10:52)
[2024-07-22] MEDS: diphenhydrAMINE 50 MG/ML 1 ML VIAL IVP STA (10:52)
[2024-07-22 11:10] LABS: Basophils # (A) 0.05 10*3/uL (0.00-0.10); Basophils % (A) 0.5 %; Eosinophils % (A) 2.1 %; HCT 40.7 % (37.2-46.3); Lymphocytes # (A) 4.31 10*3/uL (0.90-5.00); Lymphocytes % (A) 45.8 %; MCH 31.4 pg (27.0-32.0); MCHC 34.4 g/dL (32.0-37.0); MCV 91.3 fL (80.0-97.0); Mean Platelet Volume 9.6 fL (9.5-12.2); Monocytes # (A) 0.64 10*3/uL (0.20-1.00); Monocytes % (A) 6.8 %; Neutrophils # (A) 4.14 10*3/uL (1.80-7.70); Platelet Count 340 10*3/uL (140-440); RBC 4.46 10*6/uL (4.10-5.20); RDW 13.1 % (11.5-14.5); WBC 9.42 10*3/uL (4.50-10.00)
[2024-07-22 11:14] LABS: ALT 21 U/L (4-34); AST 20 U/L (14-36); African American GFR (CKD) >90 (>60 ml/min/1.73 sqM); Albumin 4.3 g/dL (3.5-5.0); Alkaline Phosphatase 51 U/L (38-126); Anion Gap 12 mmol/L; Blood Urea Nitrogen 14 mg/dL (7-17); Calcium 9.3 mg/dL (8.4-10.2); Carbon Dioxide 25 mmol/L (22-30); Chloride 105 mmol/L (98-107); Glucose 84 mg/dL (74-99); Non-African American GFR(CKD) >90 (>60 ml/min/1.73 sqM); Potassium 3.5 mmol/L (3.5-5.1); Sodium 142 mmol/L (137-145); Total Bilirubin 0.3 mg/dL (0.2-1.3); Total Protein 7.1 g/dL (6.3-8.2)
[2024-07-22 11:33] LABS: INR 0.9 (<1.2); Partial Thromboplastin Time 23.5 sec (22.0-30.0); Prothrombin Time 10.2 sec (10.0-12.5)
--- NOTE | 2024-07-22 11:43 | XR ---
EXAMINATION TYPE: XR chest 2V DATE OF EXAM: 07/22/2024 11:16 AM COMPARISON: None CLINICAL INDICATION: Female, 48 years old with history of dyspnea; TECHNIQUE: XR chest 2V Frontal and lateral views of the chest. FINDINGS: Lungs/Pleura: There is no evidence of pleural effusion, focal consolidation, or pneumothorax. Pulmonary vascularity: Unremarkable. Heart/mediastinum: Cardiomediastinal silhouette is unremarkable. Musculoskeletal: No acute osseous pathology. IMPRESSION: No acute cardiopulmonary disease/process. [facility], , 07/22/2024 11:41 AM
[2024-07-22 12:28] VITALS: BP 125/82; PULSE 70; RESP 16; TEMP 98.4
== END 2024-07-22 12:28 | disposition home or self-care (01) ==
LOC: EC 09:53
DX: T78.1XXA Other adverse food reactions, not elsewhere classified, initial encounter (principal); Z88.0 Allergy status to penicillin; Z88.8 Allergy status to other drugs, medicaments and biological substances
CPT/HCPCS: 36415; 93005; 80053; 84484; 85025; 85610; 85730; 71046; 99284; 96374; 96375 ×2; J1200; J2919; J1308

== ENCOUNTER → 2024-09-14 | Outpatient (CLI) | payer OTHER ==
--- NOTE | 2024-09-14 11:32 | MM ---
Reason for Exam: Screening (asymptomatic). Last mammogram was performed 1 year(s) and 7 month(s) ago. Patient History: Menarche at age 13. First Full-Term at age 21. Hysterectomy at age 36. Postmenopausal. Patient has history of breast feeding. Patient used Hormonal Contraceptives for 3 years. Maternal grandmother had breast cancer. Maternal aunt had breast cancer. Risk Values: Jayda 5 year model risk: 0.8%. NCI Lifetime model risk: 8.4%. Prior Study Comparison: 08/03/2019 Screening Mammogram, [facility]. 01/28/2021 Bilateral Screening Mammogram, [facility]. 01/29/2022 Bilateral MG screening mammo w CAD, [facility]. 02/23/2023 Bilateral MG screening mammo w CAD, [facility]. 03/06/2023 Left MG 3D work up w/cad LT, [facility]. Tissue Density: The breasts are heterogeneously dense, which may obscure small masses. Findings: Analyzed By CAD. There is no suspicious group of microcalcifications or new suspicious mass in either breast. Overall Assessment: Negative, BI-RAD 1 Management: Screening Mammogram of both breasts in 1 year. . Patient should continue monthly self-breast exams. A clinical breast exam by your physician is recommended on an annual basis. This exam should not preclude additional follow-up of suspicious palpable abnormalities. Note on Jayda scores and lifetime risk: 1. A Jayda score greater than 3% is considered moderate risk. If this is the case, consider specialist referral to assess eligibility for a risk reducing agent. 2. If overall lifetime risk for the development of breast cancer is 20% or higher, the patient may qualify for future screening with alternating mammogram and breast MRI. [facility], , 09/14/2024 11:28 AM. Electronically signed and approved by: Dawson Hood M.D.
== END | disposition home or self-care (01) ==
LOC: RADMAMWWP 10:10
PROVIDERS: ATTEND Family Medicine
DX: Z12.31 Encounter for screening mammogram for malignant neoplasm of breast (principal); R92.333 Mammographic heterogeneous density, bilateral breasts; Z78.0 Asymptomatic menopausal state; Z80.3 Family history of malignant neoplasm of breast; Z92.0 Personal history of contraception
CPT/HCPCS: 77067